=== PATIENT | male | born 1975 | race Caucasian/White ===

== ENCOUNTER 2017-09-16 22:20 | Emergency (ER) | payer OTHER ==
[~2017-09-16] VITALS: Ht 175.3 cm; Wt 78.0 kg
[2017-09-16 23:00] VITALS: BP 184/88; PULSE 99; RESP 20; TEMP 99.2; O2SAT 97
[2017-09-16] MEDS ORDERED: ACETAMINOPHEN 325 MG TAB PO ONE (23:15)
[2017-09-16] MEDS ORDERED: CYCLOBENZAPRINE HCL 10 MG TAB PO ONE (23:15)
[2017-09-16] MEDS ORDERED: CYCL10TA PO (23:16)
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
== END 2017-09-17 00:43 | disposition home or self-care (01) ==
LOC: NEPD 22:20
DX: S00.93XA Contusion of unspecified part of head, initial encounter (principal); S16.1XXA Strain of muscle, fascia and tendon at neck level, initial encounter; S39.012A Strain of muscle, fascia and tendon of lower back, initial encounter; X58.XXXA Exposure to other specified factors, initial encounter; Y93.I1 Activity, roller coaster riding; Y92.831 Amusement park as the place of occurrence of the external cause; I10 Essential (primary) hypertension; Z86.69 Personal history of other diseases of the nervous system and sense organs; Z85.038 Personal history of other malignant neoplasm of large intestine; Z86.59 Personal history of other mental and behavioral disorders
CPT/HCPCS: 99283